=== PATIENT | female | born 1970 | race Caucasian/White ===

== ENCOUNTER 2016-12-18 12:00 | Inpatient (IN) | payer OTHER ==
--- NOTE | 2016-12-14 08:30 | PREOPHP ---
DATE OF ADMISSION: 12/18/2016 Patient to have surgery with Dr. Kd Webb on 12/18/2016. REASON FOR CONSULTATION: Consultation requested by Dr. Kd Webb for medical evaluation and c learance of a 46-year-old woman about to undergo surgery on her lumbar spine. Thank you, Dr. Webb, for allowing us to participate in the care of this patient. HISTORY OF PRESENT ILLNESS: Fay Espinoza, a 46-year-old woman, had prior surgery on her lumbar sp ine approximately a year and 3 months ago, doing relatively well until recently and currently needs to have another procedure at a different level. PAST SURGICAL HISTORY: Positive for the followin. She has had a . 2. Laparoscopic hysterectomy. 3. Lumbar spine surgery, as mentioned above, as well as: 4. Arthroscopic surgery on her right knee. 5. Currently will be undergoing L3-L4 and L4 through S1 fusion. She has had no medical hospitalizations, has not broken any big bones. MEDICATION: Currently taking the following medications: 1. Prozac 60 mg a day. 2. Wellbutrin-XL 300 mg a day. ALLERGIES: 1. SHE IS SENSITIVE TO CODEINE AND REGLAN. 2. ALLERGIC TO KEFLEX. SOCIAL HISTORY: The patient is , has 1 son who survived AML. She does not smoke or drink al coholic beverages; does drink coffee, is employed, and usually has no difficulty sleeping at night. FAMILY HISTORY: Father at age 69 of esophageal cancer. Mother is 75 and has thyroid issues, o therwise healthy. One brother in good health. There is a family history of diabetes, as well as he art and cancer issues. No hypertension, no stroke. REVIEW OF SYSTEMS HEENT: Periodic headaches, usually tension headaches. CARDIORESPIRATORY: Denies any chest pain or shortness of breath. GASTROINTESTINAL: No melena or hematemesis. GENITOURINARY: No urgency or frequency. GYNECOLOGIC: Post hysterectomy. MUSCULOSKELETAL: Positive for back pain. NEUROPSYCHIATRIC: Positive for anxiety/depression. General health has been good. PHYSICAL EXAMINATION: VITAL SIGNS: The patient's blood pressure was 112/70, pulse was 88 and regular, respirations were 1 8, temperature 98.6. Height 5 feet 4-1/4 inches, weight 126 pounds. GENERAL: The patient was noted to be a well-developed, well-nourished female, alert and cooperative , in no apparent acute distress, oriented to time, place, and person. HEAD, EARS, EYES, NOSE AND THROAT: Head was atraumatic. Eyes: Pupils were equal, reactive to ligh t and accommodation. Fundi were benign. Tympanic membranes were unremarkable. Nose was negative. Mouth was unremarkable. Fair oral hygiene was present. NECK: Supple, without any rigidity. Trachea was midline. Thyroid was unremarkable. Neck veins we re flat. Carotid pulses were equal. No bruits were heard. BACK: Exam revealed scars from prior surgery, otherwise unremarkable. CHEST: Symmetrical. BREASTS AND AXILLARY: Did not reveal any masses. LUNGS: Clear to percussion and auscultation. HEART: PMI is fifth intercostal space at the midclavicular line. Regular sinus rhythm was noted. No significant murmurs, rubs, or gallops being elicited. ABDOMEN: Soft. Good bowel sounds were noted. No significant organomegaly, masses, or tenderness. GENITALIA: Normal female external genitalia. PELVIC/RECTAL EXAM: Per head of measurement & insights, up to date. EXTREMITIES: Did not reveal any clubbing, edema or cyanosis. Peripheral pulses were physiologic. SKIN: Moist and warm, without any eruptions. No gross lymphadenopathy was noted. NEUROLOGIC EXAM: Grossly intact. IMPRESSION: 1. Lumbar spine and disk disease. 2. Menopausal syndrome. 3. Chronic lung nodule, unchanged. 4. Stable health. DISCUSSION: Review of laboratory and other data revealed the following: The patient's chemistry pa latia revealed normal electrolytes, glucose, BUN, creatinine, liver function tests. TSH, CBC, UA, PT and PTT were normal as well. The patient's chest x-ray was normal other than a nodular density whic h had not changed over the last year and a half, in which she had a negative CAT scan in that partic ular evaluation a year and a half ago. Her EKG was normal as well. DISCUSSION: Dr. Webb, I see no contraindication in this patient undergoing the current propose d surgery under the desired form of anesthesia and feel she is a suitable candidate at this particul ar point in time and I will follow her along with you during her stay at [facility]. Thank you again, Dr. Webb, for allowing us to participate in the care of this patient. Dictated By: JULIO CESAR ROBLEDO MD SS/NTS Conf#: [id number] DID#: [id number]
[~2016-12-18] VITALS: Ht 162.6 cm; Wt 56.0 kg
[~2016-12-18 12:00] MED LIST: BUPR300T48 PO; CYCL-319 PO; FLUO40CA10 PO; LACTATED RINGER'S 1,000 ML IV* SCH; OXYC-281 PO
--- NOTE | 2017-04-19 10:49 | PREOPHP ---
DATE OF ADMISSION: 01/29/2017 REASON FOR CONSULTATION: Medical evaluation and clearance for this 46-year-old woman about to undergo surgery on her lumbar spine Thank you Dr Webb for allowing us to participate in the care of this patient. HISTORY OF PRESENT ILLNESS: Fay Couch is a 46-year-old woman who has had prior surgeries on her lumbar spine and so far has been doing relatively well until she started experiencing pain again and currently will be necessitating another surgery, which is going to include fusions at L3-L4, L4-L5, and L5-S1, as well as removal of hardware from L4-L5. Patient has had the following surgical procedures. PAST SURGICAL HISTORY: 1. . 2. Laparoscopic hysterectomy. 3. Lumbar spine surgery as above. 4. Arthroscopic surgery on her right knee. 5. As mentioned above, will be undergoing further lumbar spine surgery. PAST MEDICAL HISTORY: She has had no medical hospitalizations to date. Has had no major fractures as well. General health has been good. CURRENT MEDICATIONS: Include the followin. Wellbutrin SL 300 mg a day. 2. Prozac 16 mg a day. 3. Flexeril 10 mg t.i.d. as needed. ALLERGIES: KEFLEX. REGLAN. CODEINE. CODEINE MAY BE A SENSITIVITY WELL. VICODIN. SOCIAL HISTORY: The patient is , has 1 son who had AML and survived it. She does not smoke or drink alcoholic beverages. Does drink coffee. Works and usually has no difficulty sleeping at night. FAMILY HISTORY: Father at age 69, had esophageal cancer. Mother is 75 and well, does have some thyroid issues, and 1 brother is in good health. Family history of heart, cancer, diabetes, and thyroid. No hypertension or strokes. REVIEW OF SYSTEMS: HEENT: Periodic headaches. RESPIRATORY: Denies any chest pain or shortness of breath. GASTROINTESTINAL: No melena or hematemesis. GENITOURINARY: No urgency or frequency. GYNECOLOGIC: Post hysterectomy. MUSCULOSKELETAL: Positive for back problems. NEUROPSYCHIATRIC: Mild anxiety/depression. GENERAL HEALTH: As above. PHYSICAL EXAM: VITAL SIGNS: Patient's blood pressure was 122/64. Pulse was 72 and regular. Respirations were 18. Temperature 98. Height 5 feet 4 inches, weight 126 pounds. GENERAL: Patient was noted to be a well-developed, well- nourished female, alert and cooperative, in no obvious distress. Oriented to time, place, and person. HEAD, EAR, EYES, NOSE, AND THROAT: Head was atraumatic. The eyes, pupils were equal and reactive to light and accommodation. Fundi were benign. Tympanic membranes were unremarkable. Nose was negative. Mouth was unremarkable. Fair oral hygiene was present. NECK: Neck was supple without any rigidity. Trachea was midline. Thyroid was unremarkable. Neck veins were flat. Carotids pulses were equal. No bruits were heard. BACK: Unremarkable. Scar from prior surgery was noted. CHEST: Symmetrical. BREASTS: Axillary exam did not reveal any masses. LUNGS: Clear to percussion and auscultation. HEART: PMI in the 5th intercostal space, midclavicular line. Regular rhythm was noted. No significant murmurs, rubs, or gallops being elicited. ABDOMEN: Soft. Good bowel sounds were noted. No organomegaly, masses, or tenderness being noted. GENITALIA: Normal female external genitalia. PELVORECTAL: Up to date, per sand drier. EXTREMITIES: Did not reveal any clubbing, edema, or cyanosis. Peripheral pulses were physiologic. Skin was moist and warm without any eruptions. No gross lymphadenopathy was noted. NEUROLOGIC: Grossly intact. IMPRESSION: 1. Lumbar spine and disc disease. 2. Menopausal syndrome. 3. Chronic lung nodule, stable and unchanged. 4. Stable health discussion. LABORATORY: Review of laboratory and other data revealed the following: The patient's chemistry panel, including electrolytes, glucose, BUN, creatinine, liver function tests, basically normal. Minimal elevation of ALT was noted at 48. Patient's serum iron, magnesium, and thyroid function tests, CBC, sedimentation rate, UA, PT, and APTT were normal as well. Patient's EKG was normal as was her chest x-ray, other than that nodular density which has been present for a long time and of no clinical significance and has been thoroughly evaluated. Dr Webb, I see no contraindications for the patient undergoing current proposed surgery under desired form of anesthia and will follow her along with her during her stay at [facility]. Thank you again, Dr Webb, for letting us participate in the care of this patient. Dictated By: Jordan Horta MD /ira/karlo /Document#: [id number] MTDD
[2017-04-23] VITALS (26 sets, daily range): BP systolic 104–132; BP diastolic 56–76; PULSE 69–80; RESP 16–37; Ht 162.6 cm; Wt 56.0 kg
[2017-04-23] MEDS ORDERED: LACTATED RINGER'S 1,000 ML IV* SCH (06:00)
[2017-04-23] MEDS ORDERED: [UNRECOGNIZED DRUG - REMARK] XX SCH (08:00)
--- NOTE | 2017-04-23 11:50 | HPN ---
Date/Time of Note Date/Time of Note DATE: 04/23/17 TIME: 11:50 Interval H&P Admission Note Pt. seen H&P reviewed: No system changes TERRIE MANZO PA-C Apr 23, 2017 11:50
[2017-04-23] MEDS ORDERED: SUCCINYLCHOLINE CHLORIDE 100 MG/5 ML SYG IV ONE (12:03)
[2017-04-23] MEDS ORDERED: PROPOFOL 20 ML ONE (12:03)
[2017-04-23] MEDS ORDERED: FENTAnyl 50 MCG/ML VIAL ONE (12:03)
[2017-04-23] MEDS ORDERED: ROCURONIUM 50 MG INJ ONE (12:03)
[2017-04-23] MEDS ORDERED: LIDOCAINE 2% (SDV) 5 ML INJ ONE (12:03)
[2017-04-23] MEDS ORDERED: SURGIFOAM POWDER 1 GM KIT ONE (12:09)
[2017-04-23] MEDS ORDERED: BUPIVACAINE 0.25%/EPI (SDV) 30 ML INJ ONE (12:09)
[2017-04-23] MEDS ORDERED: POLYMYXIN/BACITRACIN 1L IRRIG ONE (12:10)
[2017-04-23] MEDS ORDERED: THROMBIN 5000 UNIT VIAL ONE (12:10)
[2017-04-23] MEDS ORDERED: VANCOMYCIN 1 GM (PMX) 250 ML ONE (12:46)
[2017-04-23] MEDS ORDERED: ONDANSETRON 4 MG INJ ONE (13:21)
[2017-04-23] MEDS ORDERED: DEXAMETHASONE 4 MG/ML 1 ML INJ ONE (13:21)
[2017-04-23] MEDS ORDERED: SUGAMMADEX SODIUM 200 MG/2 ML VIAL IV ONE (15:48)
--- NOTE | 2017-04-23 16:17 | OPPN ---
Date/Time of Note Date/Time of Note DATE: 04/23/17 TIME: 16:15 Operative Report Preoperative Diagnosis L3-4 DDD Postoperative Diagnosis L3-4 DDD Operation/Procedure Performed ALIF L3-4 Provider: NICOLA LOYD MD admissions assistant: TERRIE MANZO PA-C Anesthesia: general Estimated blood loss: 50 - 100 ml's Specimens L3-4 disc Grafts/Implants L3-4 interbody device L3-4 interspinous device Complications: None TERRIE MANZO PA-C Apr 23, 2017 16:16
[2017-04-23] MEDS ORDERED: HYDROmorphONE 0.2 MG/ML PCA IV SCH (16:30)
[2017-04-23] MEDS ORDERED: ZOLPIDEM 5 MG TAB PO PRN (16:30)
[2017-04-23] MEDS ORDERED: MEPERIDINE 25 MG INJ IV PRN (16:30)
[2017-04-23] MEDS ORDERED: AL HYDROX/MG HYDROX/SIMETH 30 ML CUP PO PRN (16:30)
[2017-04-23] MEDS ORDERED: ONDANSETRON 4 MG INJ IV PRN ×2 (16:30)
[2017-04-23] MEDS ORDERED: FENTAnyl 50 MCG/ML VIAL IV PRN ×2 (16:30)
[2017-04-23] MEDS ORDERED: ACETAMINOPHEN 325 MG TAB PO PRN (16:30)
[2017-04-23] MEDS ORDERED: BISACODYL 10 MG SUPP PR PRN (16:30)
[2017-04-23] MEDS ORDERED: NALOXONE (0.4 MG/ML) INJ IV PRN (16:30)
[2017-04-23] MEDS ORDERED: DIPHENHYDRAMINE 50 MG INJ IV PRN (16:30)
[2017-04-23] MEDS ORDERED: CEPASTAT LOZENGE MT PRN (16:30)
--- NOTE | 2017-04-23 18:06 | RADRPT ---
PROCEDURE: Intraoperative imaging of the lumbar spine with fluoroscopy. CLINICAL INDICATION: Back pain. Intraoperative. TECHNIQUE: 9 images of the lumbar spine were obtained in the operating room with an image intensif ier. No radiologist was in attendance. Fluoroscopy time is 108 seconds. COMPARISON: No prior study is available for comparison. FINDINGS: Images demonstrate multiple surgical instruments, screws, and connecting rods in the lower lumbar sp ine. IMPRESSION: 1. Intraoperative imaging of the lumbar spine. RPTAT: QQ .Steven Martinez MD, Date Time Electronically viewed and signed by .Steven Martinez MD, on 04/23/2017 18:06 .R/
[2017-04-23] MEDS ORDERED: CYCLOBENZAPRINE 10 MG TAB PO PRN (18:30)
--- NOTE | 2017-04-23 18:31 | CONS ---
Date/Time of Note Date/Time of Note DATE: 04/23/17 TIME: 18:25 Consult Date/Type/Reason Admit Date/Time Apr 23, 2017 at 08:36 Initial Consult Date 04/16/2017 Type of Consultation: internal medicine Reason for Consultation pre=op evaluation and clearance Ordering Provider: NICOLA LOYD MD Subjective alert in recovery room comp-laining of back pain otherwise stable Objective Vital Signs Date Time Temp Pulse Resp B/P Pulse Ox O2 Delivery O2 Flow Rate FiO2 04/23/17 18:00 75 18 123/68 98 Room Air 04/23/17 16:27 97.0 Exam heent-neg chestsymetrical lungs -clear heart regular rhyth abdonen -soft Results/Medications Medications Current Medications Lactated Ringer's 1,000 ml @ 0 mls/hr Q0M IV* ; Start 04/23/17 at 06:00; Stop 04/23/17 at 19:00 Potassium Chloride/Dextrose/ Sod Cl (D5-1/2ns + KCl 20 Meq) 1,000 ml @ 100 mls/ hr Q10H IV ; Start 04/23/17 at 16:12 Oxycodone/ Acetaminophen (Endocet (10/ 325)) 1 tab Q4H PRN PO PAIN LEVEL 1-5; Start 04/23/17 at 16:30 Oxycodone/ Acetaminophen (Endocet (10/ 325)) 2 tab Q4H PRN PO PAIN LEVEL 6-10; Start 04/23/17 at 16:30 Hydromorphone HCl 0.2 mg 0.2 mg Q1H PRN IV BREAKTHROUGH PAIN; Start 04/23/17 at 16:30 Vancomycin HCl (Vancocin) 250 ml @ 125 mls/hr Q12H IVPB ; Start 04/24/17 at 01: 00; Stop 04/24/17 at 14:59 Ondansetron HCl (Zofran Inj) 4 mg Q6H PRN IV NAUSEA AND/OR VOMITING; Start at 16:30 Bisacodyl (Dulcolax Supp) 10 mg DAILY PRN [place] CONSTIPATION; Start 04/23/17 at 16 :30 Docusate Sodium (Colace) 100 mg BID PO ; Start 04/23/17 at 21:00 Al Hydrox/Mg Hydrox/Simethicone (Mag-Al Plus) 15 ml Q6H PRN PO CONSTIPATION/ DYSPEPSIA; Start 04/23/17 at 16:30 Acetaminophen (Tylenol Tab) 650 mg Q4H PRN PO WESTON OR TEMP GREATER THAN 101.3F; Start 04/23/17 at 16:30 Cyclobenzaprine HCl (Flexeril) 10 mg TID PRN PO MUSCLE SPASMS; Start 04/23/17 at 16:30 Phenol (Cepastat Lozenge) 1 lozenge PRN PRN MT SORE THROAT; Start 04/23/17 at 16:30 Diphenhydramine HCl (Benadryl) 25 mg Q6H PRN IV ITCHING; Start 04/23/17 at 16: 30 Naloxone HCl (Narcan) 0.2 mg Q2M PRN IV RR 8 BREATHS/MIN OR LESS; Start at 16:30 Hydromorphone HCl (Dilaudid MATERIALS HANDLING COORDINATOR) MATERIALS HANDLING COORDINATOR to be started in PACU Q4PCA IV Last administered on 04/23/17t 16:43; Admin Dose 6 MG; Start 04/23/17 at 16:30 Miscellaneous Information 1. Hold MATERIALS HANDLING COORDINATOR at 1,000... MATERIALS HANDLING COORDINATOR IV ; Start 04/23/17 at 16: 30 Assessment/Plan Chief Complaint/Hosp Course back pain post lumbar spine surgery Problems: Additional Assessment/Plan plan will follow medically pre-op medicines reorderd will follow --thank you JULIO CESAR Tapia MD Apr 23, 2017 18:31
[2017-04-23] MEDS: CYCLOBENZAPRINE 10 MG TAB PO PRN (18:39)
[2017-04-23] MEDS: DOCUSATE SODIUM 100 MG CAP PO SCH (21:00)
[2017-04-24] VITALS: BP 103/55; RESP 20
[2017-04-24] MEDS: VANCOMYCIN 1 GM (PMX) 250 ML IVPB SCH ×2 (01:00→04:11)
[2017-04-24] MEDS: D5W-0.45 NACL + KCL 20 MEQ 1,000 ML IV SCH ×4 (01:42→22:12)
[2017-04-24] MEDS: OXYCODONE/ACETAMINOPHEN (10/325) TAB PO PRN ×5 (04:10→20:06)
[2017-04-24] MEDS: DIPHENHYDRAMINE 50 MG INJ IV PRN ×2 (04:20→09:12)
[2017-04-24] MEDS ORDERED: ONDANSETRON 4 MG INJ IV PRN (04:30)
[2017-04-24 07:00] VITALS: BP 110/56; PULSE 71; RESP 20
--- NOTE | 2017-04-24 07:14 | PN ---
Date/Time of Note Date/Time of Note DATE: 04/24/17 TIME: 07:12 Assessment/Plan Lines/Catheters IV Catheter Type (from Nrsg): Peripheral IV [place] in Place (from Nrsg): Yes Assessment/Plan Assessment/Plan post op #1 d/c front man and start orals control nausea and pain hct 24 - historically she is anemic. HCT 2016 range 23-25; will obtain stat CT to rule out intraabdominal bleeding - low suspicion; vitals have been stable and WNL. Subjective 24 Hr Interval Summary c/o back pain and nausea Exam/Review of Systems Vital Signs Vitals Vital Signs Date Time Temp Pulse Resp B/P Pulse Ox O2 Delivery O2 Flow Rate FiO2 04/23/17 19:20 97.7 80 18 104/57 98 04/23/17 18:45 Room Air Intake and Output 04/23/17 04/23/17 04/24/17 15:00 23:00 07:00 Intake Total 1800 ml 440 ml Output Total 510 ml 800 ml Balance 1290 ml -360 ml Exam Free Text/Dictation abdomen soft and non tender alert and oriented NVI incisions dry NICOLA LOYD MD Apr 24, 2017 07:14
--- NOTE | 2017-04-24 07:14 | CONS ---
Date/Time of Note Date/Time of Note DATE: 04/24/17 TIME: 07:11 Consultation Date/Type/Reason Admit Date/Time Apr 23, 2017 at 08:36 Initial Consult Date 04/24/17 Type of Consultation: Anesthesiology Reason for Consultation Follow up Referring Provider: NICOLA LOYD MD 24 HR Interval Summary Free Text/Dictation Pt seen and examined at bedside is POD#1 s/p L3-4 XLIF. Pt states she id doing well but still has pain for which she is receiving PRN percocet and CELLOPHANE PRESS OPERATOR. She states the pain she has during this recovery is much less than her prior back surgery and is in good spirits. She has an episode of vomiting yesterday and states she usually has much more N/V. Moving all extremities. Will continue to follow. Constitutional: improved, no complaints Exam/Review of Systems Vital Signs Vitals Vital Signs Date Time Temp Pulse Resp B/P Pulse Ox O2 Delivery O2 Flow Rate FiO2 04/23/17 19:20 97.7 80 18 104/57 98 04/23/17 18:45 Room Air Intake and Output 04/23/17 04/23/17 04/24/17 15:00 23:00 07:00 Intake Total 1800 ml 440 ml Output Total 510 ml 800 ml Balance 1290 ml -360 ml Medications Medications Current Medications Potassium Chloride/Dextrose/ Sod Cl (D5-1/2ns + KCl 20 Meq) 1,000 ml @ 100 mls/ hr Q10H IV Last administered on 04/24/17 02:12; Admin Dose 100 MLS/HR; Start 04/23/17 at 16:12 Oxycodone/ Acetaminophen (Endocet (10/ 325)) 1 tab Q4H PRN PO PAIN LEVEL 1-5 Last administered on 04/24/17 07:09; Admin Dose 1 TAB; Start 04/23/17 at 16:30 Oxycodone/ Acetaminophen (Endocet (10/ 325)) 2 tab Q4H PRN PO PAIN LEVEL 6-10; Start 04/23/17 at 16:30 Hydromorphone HCl 0.2 mg 0.2 mg Q1H PRN IV BREAKTHROUGH PAIN; Start 04/23/17 at 16:30 Vancomycin HCl (Vancocin) 250 ml @ 125 mls/hr Q12H IVPB Last administered on 04:11; Admin Dose 125 MLS/HR; Start 04/24/17 at 01:00; Stop 04/24/17 at 14:59 Bisacodyl (Dulcolax Supp) 10 mg DAILY PRN [place] CONSTIPATION; Start 04/23/17 at 16 :30 Docusate Sodium (Colace) 100 mg BID PO Last administered on 04/23/17 21:00; Admin Dose 100 MG; Start 04/23/17 at 21:00 Al Hydrox/Mg Hydrox/Simethicone (Mag-Al Plus) 15 ml Q6H PRN PO CONSTIPATION/ DYSPEPSIA; Start 04/23/17 at 16:30 Acetaminophen (Tylenol Tab) 650 mg Q4H PRN PO [place]ST[place] OR TEMP GREATER THAN 101.3F; Start 04/23/17 at 16:30 Cyclobenzaprine HCl (Flexeril) 10 mg TID PRN PO MUSCLE SPASMS Last administered on 04/23/17 18:39; Admin Dose 10 MG; Start 04/23/17 at 16:30 Phenol (Cepastat Lozenge) 1 lozenge PRN PRN MT SORE THROAT; Start 04/23/17 at 16:30 Diphenhydramine HCl (Benadryl) 25 mg Q6H PRN IV ITCHING Last administered on 04:20; Admin Dose 25 MG; Start 04/23/17 at 16:30 Naloxone HCl (Narcan) 0.2 mg Q2M PRN IV RR 8 BREATHS/MIN OR LESS; Start at 16:30 Hydromorphone HCl (Dilaudid CELLOPHANE PRESS OPERATOR) CELLOPHANE PRESS OPERATOR to be started in PACU Q4PCA IV Last administered on 04/23/17 16:43; Admin Dose 6 MG; Start 04/23/17 at 16:30 Miscellaneous Information 1. Hold CELLOPHANE PRESS OPERATOR at 1,000... CELLOPHANE PRESS OPERATOR IV ; Start 04/23/17 at 16: 30 Bupropion HCl (Wellbutrin Xl) 300 mg DAILY PO ; Start 04/24/17 at 09:00 Fluoxetine HCl (Prozac) 60 mg DAILY PO ; Start 04/24/17 at 09:00 Ondansetron HCl (Zofran Inj) 4 mg Q4H PRN IV NAUSEA AND/OR VOMITING; Start at 04:30 DILSHAD GARCIA Apr 24, 2017 07:14
[2017-04-24 08:00] VITALS: BP 118/69; RESP 18
[2017-04-24] MEDS: CYCLOBENZAPRINE 10 MG TAB PO PRN ×3 (08:06→21:22)
--- NOTE | 2017-04-24 08:12 | CONS ---
Date/Time of Note Date/Time of Note DATE: 04/24/17 TIME: 08:05 Consult Date/Type/Reason Admit Date/Time Apr 23, 2017 at 08:36 Initial Consult Date 04/16/2017 Type of Consultation: internal medicine Reason for Consultation medical f/u post op Ordering Provider: NICOLA LOYD MD Subjective patient alert one episode of emesis and nausea last night possibly 2nd to narcotis.otherwise complaining of back pain at surgical site Objective Vital Signs Date Time Temp Pulse Resp B/P Pulse Ox O2 Delivery O2 Flow Rate FiO2 04/24/17 07:00 97.1 71 20 110/56 98 Room Air Intake and Output 04/23/17 04/23/17 04/24/17 15:00 23:00 07:00 Intake Total 1800 ml 690 ml Output Total 510 ml 800 ml Balance 1290 ml -110 ml Exam heent negative lungs clear hear regular rhythms present abdomen slightly distende b Results/Medications Results 24 hrs lab pending Medications Current Medications Potassium Chloride/Dextrose/ Sod Cl (D5-1/2ns + KCl 20 Meq) 1,000 ml @ 100 mls/ hr Q10H IV Last administered on 04/24/17 02:12; Admin Dose 100 MLS/HR; Start 04/23/17 at 16:12 Oxycodone/ Acetaminophen (Endocet (10/ 325)) 1 tab Q4H PRN PO PAIN LEVEL 1-5 Last administered on 04/24/17 07:09; Admin Dose 1 TAB; Start 04/23/17 at 16:30 Oxycodone/ Acetaminophen (Endocet (10/ 325)) 2 tab Q4H PRN PO PAIN LEVEL 6-10; Start 04/23/17 at 16:30 Hydromorphone HCl 0.2 mg 0.2 mg Q1H PRN IV BREAKTHROUGH PAIN; Start 04/23/17 at 16:30 Vancomycin HCl (Vancocin) 250 ml @ 125 mls/hr Q12H IVPB Last administered on 04:11; Admin Dose 125 MLS/HR; Start 04/24/17 at 01:00; Stop 04/24/17 at 14:59 Bisacodyl (Dulcolax Supp) 10 mg DAILY PRN [place] CONSTIPATION; Start 04/23/17 at 16 :30 Docusate Sodium (Colace) 100 mg BID PO Last administered on 04/23/17 21:00; Admin Dose 100 MG; Start 04/23/17 at 21:00 Al Hydrox/Mg Hydrox/Simethicone (Mag-Al Plus) 15 ml Q6H PRN PO CONSTIPATION/ DYSPEPSIA; Start 04/23/17 at 16:30 Acetaminophen (Tylenol Tab) 650 mg Q4H PRN PO [place] OR TEMP GREATER THAN 101.3F; Start 04/23/17 at 16:30 Cyclobenzaprine HCl (Flexeril) 10 mg TID PRN PO MUSCLE SPASMS Last administered on 04/23/17 18:39; Admin Dose 10 MG; Start 04/23/17 at 16:30 Phenol (Cepastat Lozenge) 1 lozenge PRN PRN MT SORE THROAT; Start 04/23/17 at 16:30 Diphenhydramine HCl (Benadryl) 25 mg Q6H PRN IV ITCHING Last administered on 04:20; Admin Dose 25 MG; Start 04/23/17 at 16:30 Naloxone HCl (Narcan) 0.2 mg Q2M PRN IV RR 8 BREATHS/MIN OR LESS; Start at 16:30 Hydromorphone HCl (Dilaudid BUILDING INSPECTOR) BUILDING INSPECTOR to be started in PACU Q4PCA IV Last administered on 04/23/17 16:43; Admin Dose 6 MG; Start 04/23/17 at 16:30 Miscellaneous Information 1. Hold BUILDING INSPECTOR at 1,000... BUILDING INSPECTOR IV ; Start 04/23/17 at 16: 30 Bupropion HCl (Wellbutrin Xl) 300 mg DAILY PO ; Start 04/24/17 at 09:00 Fluoxetine HCl (Prozac) 60 mg DAILY PO ; Start 04/24/17 at 09:00 Ondansetron HCl (Zofran Inj) 4 mg Q4H PRN IV NAUSEA AND/OR VOMITING; Start at 04:30 Assessment/Plan Chief Complaint/Hosp Course back pain post lumbar spine surgery Problems: Additional Assessment/Plan plan await todays lab plan per JULIO CESAR Gerardo MD Apr 24, 2017 08:12
[2017-04-24 08:42] LABS: BASOPHILS % 0.2 % (0.0-2.0); EOSINOPHILS % 0.1 % (0.0-7.0); HEMATOCRIT 32.8 % (37.0-47.0); HEMOGLOBIN 10.5 g/dl (12.0-16.0); LYMPHOCYTES % 9.9 % (15.0-51.0); MEAN CORPUSCULAR HEMOGLOBIN 26.9 pg (29.0-33.0); MEAN CORPUSCULAR VOLUME 84.1 fl (82.0-101.0); MEAN PLATELET VOLUME 10.1 fl (7.4-10.4); MONOCYTE # 0.7 10^3/ul (0.3-0.9); MONOCYTES % 6.7 % (0.0-11.0); NEUTROPHIL # 8.1 10^3/ul (1.6-7.5); NEUTROPHILS % 82.8 % (39.0-77.0); PLATELET COUNT 254 10^3/UL (140-415); RED CELL DISTRIBUTION WIDTH 12.9 % (11.5-14.5); WHITE BLOOD COUNT 9.7 10^3/ul (4.8-10.8)
[2017-04-24 08:57] LABS: CALCIUM 8.2 mg/dl (8.4-10.2); CREATININE 0.72 mg/dl (0.44-1.00); POTASSIUM 4.6 mmol/L (3.5-5.1)
[2017-04-24] MEDS: DOCUSATE SODIUM 100 MG CAP PO SCH ×2 (09:15→20:06)
[2017-04-24] MEDS: BUPROPION (XL) 150 MG TAB PO SCH (09:15)
[2017-04-24] MEDS: FLUOXETINE 20 MG CAP PO SCH (09:15)
[2017-04-24] MEDS ORDERED: DIPHENHYDRAMINE 50 MG INJ IV PRN ×2 (10:13→10:30)
[2017-04-24 14:00] VITALS: BP 116/61; RESP 18
[2017-04-24] MEDS: HYDROmorphONE 1 MG/ML SYG IV PRN (16:26)
[2017-04-24 19:20] VITALS: BP 127/67; RESP 18
[2017-04-25] MEDS: OXYCODONE/ACETAMINOPHEN (10/325) TAB PO PRN ×6 (00:10→22:38)
[2017-04-25 04:05] VITALS: BP 111/58; PULSE 70; RESP 19
[2017-04-25 05:44] LABS: BASOPHILS % 0.3 % (0.0-2.0); EOSINOPHILS # 0.1 10^3/ul (0.0-0.5); EOSINOPHILS % 1.1 % (0.0-7.0); HEMATOCRIT 29.9 % (37.0-47.0); HEMOGLOBIN 9.9 g/dl (12.0-16.0); LYMPHOCYTES # 1.4 10^3/ul (0.8-2.9); LYMPHOCYTES % 22.8 % (15.0-51.0); MEAN CORPUSCULAR HEMOGLOBIN 27.7 pg (29.0-33.0); MEAN CORPUSCULAR HGB CONC 33.1 g/dl (32.0-37.0); MEAN CORPUSCULAR VOLUME 83.8 fl (82.0-101.0); MEAN PLATELET VOLUME 10.1 fl (7.4-10.4); MONOCYTE # 0.5 10^3/ul (0.3-0.9); MONOCYTES % 7.7 % (0.0-11.0); NEUTROPHIL # 4.3 10^3/ul (1.6-7.5); NEUTROPHILS % 67.9 % (39.0-77.0); PLATELET COUNT 220 10^3/UL (140-415); RED BLOOD COUNT 3.57 10^6/ul (4.20-5.40); RED CELL DISTRIBUTION WIDTH 12.8 % (11.5-14.5); WHITE BLOOD COUNT 6.3 10^3/ul (4.8-10.8)
[2017-04-25] MEDS: CYCLOBENZAPRINE 10 MG TAB PO PRN ×3 (05:45→22:08)
[2017-04-25 06:15] LABS: ALBUMIN 3.1 g/dl (3.3-4.9); ALBUMIN/GLOBULIN RATIO 1.24; CALCIUM 8.5 mg/dl (8.4-10.2); CREATININE 0.74 mg/dl (0.44-1.00); POTASSIUM 3.7 mmol/L (3.5-5.1); TOTAL PROTEIN 5.6 g/dl (6.1-8.1)
[2017-04-25 07:58] VITALS: BP 110/52; RESP 18
[2017-04-25] MEDS: D5W-0.45 NACL + KCL 20 MEQ 1,000 ML IV SCH ×2 (08:12→18:12)
[2017-04-25] MEDS: DOCUSATE SODIUM 100 MG CAP PO SCH ×2 (08:20→22:08)
[2017-04-25] MEDS: BUPROPION (XL) 150 MG TAB PO SCH (08:20)
[2017-04-25] MEDS: FLUOXETINE 20 MG CAP PO SCH (08:21)
--- NOTE | 2017-04-25 09:41 | CONS ---
Date/Time of Note Date/Time of Note DATE: 04/25/17 TIME: 09:35 Consult Date/Type/Reason Admit Date/Time Apr 23, 2017 at 08:36 Initial Consult Date 04/16/2017 Type of Consultation: internal medicine Reason for Consultation medical management and f/u Ordering Provider: NICOLA LOYD MD Subjective more comfortable today, still having back pain but is improving -gi symptoms improved Objective Vital Signs Date Time Temp Pulse Resp B/P Pulse Ox O2 Delivery O2 Flow Rate FiO2 04/25/17 07:58 98.0 74 18 110/52 98 04/25/17 04:05 Room Air Intake and Output 04/24/17 04/24/17 04/25/17 15:00 23:00 07:00 Intake Total 500 ml 1280 ml 640 ml Output Total 800 ml 900 ml Balance 500 ml 480 ml -260 ml Exam vss stable heent neg chest clear cor rsr Results/Medications Result Diagram: 04/25/17 0445 04/25/17 0445 Results 24 hrs Laboratory Tests Test 04/25/17 04:45 White Blood Count 6.3 # Red Blood Count 3.57 L Hemoglobin 9.9 L Hematocrit 29.9 L Mean Corpuscular Volume 83.8 Mean Corpuscular Hemoglobin 27.7 L Mean Corpuscular Hemoglobin Concent 33.1 Red Cell Distribution Width 12.8 Platelet Count 220 Mean Platelet Volume 10.1 Neutrophils % 67.9 Lymphocytes % 22.8 Monocytes % 7.7 Eosinophils % 1.1 Basophils % 0.3 Nucleated Red Blood Cells % 0.0 Neutrophils # 4.3 Lymphocytes # 1.4 Monocytes # 0.5 Eosinophils # 0.1 Basophils # 0.0 Nucleated Red Blood Cells # 0.0 Sodium Level 140 Potassium Level 3.7 Chloride Level 103 Carbon Dioxide Level 27 Anion Gap 14 Blood Urea Nitrogen 14 Creatinine 0.74 Glucose Level 95 Calcium Level 8.5 Total Bilirubin 0.0 L Direct Bilirubin 0.00 Indirect Bilirubin 0.0 Aspartate Amino Transf (AST/SGOT) 38 Alanine Aminotransferase (ALT/SGPT) 37 Alkaline Phosphatase 64 Total Protein 5.6 L Albumin 3.1 L Globulin 2.50 Albumin/Globulin Ratio 1.24 Medications Current Medications Potassium Chloride/Dextrose/ Sod Cl (D5-1/2ns + KCl 20 Meq) 1,000 ml @ 100 mls/ hr Q10H IV Last administered on 04/24/17 02:12; Admin Dose 100 MLS/HR; Start 04/23/17 at 16:12 Oxycodone/ Acetaminophen (Endocet (10/ 325)) 1 tab Q4H PRN PO PAIN LEVEL 1-5 Last administered on 04/24/17 12:09; Admin Dose 1 TAB; Start 04/23/17 at 16:30 Oxycodone/ Acetaminophen (Endocet (10/ 325)) 2 tab Q4H PRN PO PAIN LEVEL 6-10 Last administered on 04/25/17 08:21; Admin Dose 2 TAB; Start 04/23/17 at 16:30 Hydromorphone HCl (Dilaudid) 0.2 mg Q1H PRN IV BREAKTHROUGH PAIN Last administered on 04/24/17 16:26; Admin Dose 0.2 MG; Start 04/23/17 at 16:30 Bisacodyl (Dulcolax Supp) 10 mg DAILY PRN [place] CONSTIPATION; Start 04/23/17 at 16 :30 Docusate Sodium (Colace) 100 mg BID PO Last administered on 04/25/17 08:20; Admin Dose 100 MG; Start 04/23/17 at 21:00 Al Hydrox/Mg Hydrox/Simethicone (Mag-Al Plus) 15 ml Q6H PRN PO CONSTIPATION/ DYSPEPSIA; Start 04/23/17 at 16:30 Acetaminophen (Tylenol Tab) 650 mg Q4H PRN PO [place] OR TEMP GREATER THAN 101.3F; Start 04/23/17 at 16:30 Cyclobenzaprine HCl (Flexeril) 10 mg TID PRN PO MUSCLE SPASMS Last administered on 04/25/17 05:45; Admin Dose 10 MG; Start 04/23/17 at 16:30 Phenol (Cepastat Lozenge) 1 lozenge PRN PRN [place] SORE THROAT; Start 04/23/17 at 16:30 Naloxone HCl (Narcan) 0.2 mg Q2M PRN IV RR 8 BREATHS/MIN OR LESS; Start at 16:30 Bupropion HCl (Wellbutrin Xl) 300 mg DAILY PO Last administered on 04/25/17 08 :20; Admin Dose 300 MG; Start 04/24/17 at 09:00 Fluoxetine HCl (Prozac) 60 mg DAILY PO Last administered on 04/25/17 08:21; Admin Dose 60 MG; Start 04/24/17 at 09:00 Ondansetron HCl (Zofran Inj) 4 mg Q4H PRN IV NAUSEA AND/OR VOMITING; Start at 04:30 Diphenhydramine HCl (Benadryl) 25 mg Q4H PRN IV itching ; Start 04/24/17 at 10: 30 Assessment/Plan Chief Complaint/Hosp Course back pain post lumbar spine surgery Problems: Additional Assessment/Plan mild anemia persists otherwise improving management per medically stable [facility] MD Apr 25, 2017 09:41
--- NOTE | 2017-04-25 12:39 | PN ---
Date/Time of Note Date/Time of Note DATE: 04/25/17 TIME: 12:38 Assessment/Plan Lines/Catheters IV Catheter Type (from Nrsg): Saline Lock Stratton in Place (from Nrsg): No Assessment/Plan Assessment/Plan s/p ALIF L3-4 not yet cleared for D/C by PT - continue PT, ambulate continue pain control routine care anticipate D/C tomorrow AM Subjective 24 Hr Interval Summary pt c/o LBP, nausea improving Exam/Review of Systems Vital Signs Vitals Vital Signs Date Time Temp Pulse Resp B/P Pulse Ox O2 Delivery O2 Flow Rate FiO2 04/25/17 07:58 98.0 74 18 110/52 98 04/25/17 04:05 Room Air Intake and Output 04/24/17 04/24/17 04/25/17 15:00 23:00 07:00 Intake Total 500 ml 1280 ml 640 ml Output Total 800 ml 900 ml Balance 500 ml 480 ml -260 ml Exam Free Text/Dictation NVID abdomen soft, NT/ND Results Result Diagram: 04/25/17 0445 04/25/17 0445 TERRIE MANZO PA-C Apr 25, 2017 12:39
--- NOTE | 2017-04-25 12:50 | OPR ---
DATE OF OPERATION: PREOPERATIVE DIAGNOSES: 1. Previous L4-5 L5, S1 fusion. 2. 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 3. Lumbar radiculopathy. POSTOPERATIVE DIAGNOSES: 1. Previous L4-5 L5, S1 fusion. 2. 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 3. Lumbar radiculopathy. IMPLANTS: 1. Kingston 8 x 10 x 40 mm cage. 2. Fiber graft. 3. Globus spinous fixation, 41-mm device with 30-mm ame. PROCEDURES: 1. Anterior lumbar interbody fusion, L3-4. 2. Placement of intervertebral biomechanical device. 3. Posterior spinous fixation at L3-4. 4. Use of allograft. 5. Posterior lateral fusion at L3-4. 6. Use of C-arm, flush with interpretation without radiologist present. 7. Intraoperative neuro monitoring (2 hours). PRIMARY SURGEON: Kd Webb MD. CHIEF TECHNICIAN X RAY: Carisa Quiroz PA-C. NEED FOR COMBINER OPERATOR: respiratory assistant was required in order to retract neurovascular elements. This cannot be done with a auto body technician. FINDINGS: Neuromonitoring at the start of the case revealed bilateral L3 and L4 amplitude down 40 percent. At the end of the case, all nerve signals returned to normal. The patient had instability at L3-4 with stenosis. ESTIMATED BLOOD LOSS: Sixty mL. DRAINS: None. SPECIMENS: L3-4 disk. COMPLICATIONS: None. ANESTHESIOLOGIST: Larry Campos MD. ANESTHESIA: General. INDICATION FOR PROCEDURE: This is a 46-year-old female who had previously undergone fusion at L4-5 and L5-S1. She developed instability at L3 through 4. Therefore, I recommended proceeding with the above mentioned surgery. Preoperatively, I discussed risks, benefits, and alternatives. She understood and wished to proceed. DESCRIPTION OF PROCEDURE: The patient was identified in the preoperative holding area, given vancomycin antibiotics in the operating room, where she was successfully placed under general anesthesia. Neuromonitoring leads were placed. Sequential compressive devices were applied. Stratton catheter was introduced. Neuromonitoring was utilized during the procedure for 3 hours to include SSEP, MEP, and EMG. This was performed by [employer]. Start time was 1:15; closure time was 4:15 p.m. The patient was initially placed in a right lateral decubitus position. The patient was secured to the table, and the table was flexed to allow access of the spine. The patient was then prepped in the usual sterile fashion. I identified the incision site, which I anesthetized with Marcaine and epinephrine. An anterior approach was then made to the spine from a direct lateral approach. Skin was incised. I then finger dissected through the musculature and identified the retroperitoneal space. I then placed a dilator over the L3-4 level under C-arm guidance and stimulated the area to make sure that there were no nerve roots in the field. I then passed a guidewire followed by larger dilators stimulating each of these along the way. I then placed a retractor. I visualized the psoas muscle, which I dissected, and docked the dilator onto the L3-4 disk space. I then stimulated the area and made sure that there was no neural elements in the field. Once this was done, an annulotomy was made followed by radicle discectomy using curettes, Kerrison punches, and pituitary rongeurs. I then placed various trials and chose the appropriate graft height. I then took the cage, within which I placed allograft, and I impacted the intervertebral biomechanical device into the L3-4 level to complete the anterior lumbar antibody fusion at this level. Hemostasis was achieved with bipolar cautery and Surgiflo. The wound was then irrigated. Retractors were removed. I then closed this wound in layers with number 1 Vicryl, 2-0 Vicryl, and 4 Monocryl sutures. I then placed Dermabond. I then transferred the patient to prone position on Ramez frame. The patient was then prepped in the usual sterile fashion again. All bony prominences were well padded. The incision was identified with the C-arm fluoroscope, and I injected the skin, subcu tissue, paraspinal musculature with 0.25 percent Marcaine epinephrine. An incision was then made over the L3-4 level and taken down to the dorsal fascia. I then subperiosteally dissected the L3 and L4 lamina bilaterally. I confirmed the level with the C-arm fluoroscope. I then burred the L3 and L4 lamina bilaterally. I then placed trials for the implant. The patient previously had pedicle screws and rather than extending these, I elected to use an interspinous fixation device to add stabilization to minimize the muscular violation. I then took the final interspinous implant, which I placed, locked it down onto the spinous processes, then took final AP and lateral images. I was happy with placement of the hardware and alignment of the spine. I then placed the allograft for posterior lateral fusion at L3-4. I irrigated the wound prior to doing so. I then closed the deep fascia with a number 1 Vicryl stitch. I then closed subcu tissue with 2-0 Vicryl suture and 4-0 Monocryl closure was then performed. Dermabond was then applied. The patient was then awakened from anesthesia and taken to recovery in stable condition. Lap, sponge, instrument counts were correct x2. There were no apparent complications during the procedure. The patient will be admitted to [facility] for routine postoperative care to include pain control, antibiotics, and physical therapy. Dictated By: Kd Webb MD /ira/anamaria /Document#: [id number]
[2017-04-25 19:46] VITALS: BP 111/70; RESP 22
[2017-04-26] MEDS: HYDROmorphONE 1 MG/ML SYG IV PRN ×2 (01:56→05:16)
[2017-04-26] MEDS: OXYCODONE/ACETAMINOPHEN (10/325) TAB PO PRN ×2 (04:00→09:55)
[2017-04-26] MEDS: D5W-0.45 NACL + KCL 20 MEQ 1,000 ML IV SCH (04:00)
--- NOTE | 2017-04-26 08:19 | DS ---
Date/Time of Note Date/Time of Note DATE: 04/26/17 TIME: 08:18 Discharge Summary Admission/Discharge Info Admit Date/Time Apr 23, 2017 at 08:36 Discharge Date/Time 04/26/17 Discharge Diagnosis fusion Patient Condition: Good Procedures L3-4 fusion Hospital Course patient was admitted to ortho [facility] after undergoing lumbar fusion. hospital course uncomplicated. stable for d/c f/u arranged Home Meds Reported Medications Oxycodone Hcl-Acetaminophen* (Percocet*) 5-325 Mg Tablet, 1 TAB PO Q4H Y for PAIN LEVEL 6-10, TAB 09/30/15 Cyclobenzaprine Hcl* (Cyclobenzaprine Hcl*) 10 Mg Tablet, 10 MG PO Q8 Y for MUSCLE SPASMS, #60 TAB 09/30/15 Bupropion Hcl* (Wellbutrin XL*) 300 Mg Tab.sr.24h, 300 MG PO DAILY, TAB.SA 09/30/15 Fluoxetine Hcl* (Prozac*) 40 Mg Capsule, 60 MG PO DAILY, CAP 09/30/15 Primary Care Provider Not On Staff Doctor Pending Labs Laboratory Tests Test 04/26/17 05:26 Lab Scanned Report [id number] NICOLA LOYD MD Apr 26, 2017 08:19
[2017-04-26 08:46] VITALS: BP 114/64; RESP 22
--- NOTE | 2017-04-26 08:49 | CONS ---
Date/Time of Note Date/Time of Note DATE: 04/26/17 TIME: 08:44 Consult Date/Type/Reason Admit Date/Time Apr 23, 2017 at 08:36 Initial Consult Date 04/16/2017 Type of Consultation: internal medicine Reason for Consultation medical f/u Ordering Provider: NICOLA LOYD MD Subjective still having pain but much improved appears more alert and AWAKE THIS AM Objective Vital Signs Date Time Temp Pulse Resp B/P Pulse Ox O2 Delivery O2 Flow Rate FiO2 04/25/17 19:46 98.5 69 22 111/70 100 04/25/17 04:05 Room Air Intake and Output 04/25/17 04/25/17 04/26/17 15:00 23:00 07:00 Intake Total 700 ml 800 ml Balance 700 ml 800 ml Exam vss stable heent neg. lungs clear cor rsr abd. soft bs+ Results/Medications Result Diagram: 04/25/1744404/25/17 0445 Results 24 hrs Laboratory Tests Test 04/26/17 05:26 Lab Scanned Report LAB Medications Current Medications Potassium Chloride/Dextrose/ Sod Cl (D5-1/2ns + KCl 20 Meq) 1,000 ml @ 100 mls/ hr Q10H IV Last administered on 04/24/17 02:12; Admin Dose 100 MLS/HR; Start 04/23/17 at 16:12 Oxycodone/ Acetaminophen (Endocet (10/ 325)) 1 tab Q4H PRN PO PAIN LEVEL 1-5 Last administered on 04/24/17 12:09; Admin Dose 1 TAB; Start 04/23/17 at 16:30 Oxycodone/ Acetaminophen (Endocet (10/ 325)) 2 tab Q4H PRN PO PAIN LEVEL 6-10 Last administered on 04/26/17 04:00; Admin Dose 2 TAB; Start 04/23/17 at 16:30 Hydromorphone HCl (Dilaudid) 0.2 mg Q1H PRN IV BREAKTHROUGH PAIN Last administered on 04/26/17 05:16; Admin Dose 0.2 MG; Start 04/23/17 at 16:30 Bisacodyl (Dulcolax Supp) 10 mg DAILY PRN [place] CONSTIPATION; Start 04/23/17 at 16 :30 Docusate Sodium (Colace) 100 mg BID PO Last administered on 04/25/17 22:08; Admin Dose 100 MG; Start 04/23/17 at 21:00 Al Hydrox/Mg Hydrox/Simethicone (Mag-Al Plus) 15 ml Q6H PRN PO CONSTIPATION/ DYSPEPSIA; Start 04/23/17 at 16:30 Acetaminophen (Tylenol Tab) 650 mg Q4H PRN PO [place] OR TEMP GREATER THAN 101.3F; Start 04/23/17 at 16:30 Cyclobenzaprine HCl (Flexeril) 10 mg TID PRN PO MUSCLE SPASMS Last administered on 04/25/17 22:08; Admin Dose 10 MG; Start 04/23/17 at 16:30 Phenol (Cepastat Lozenge) 1 lozenge PRN PRN [place] SORE THROAT; Start 04/23/17 at 16:30 Naloxone HCl (Narcan) 0.2 mg Q2M PRN IV RR 8 BREATHS/MIN OR LESS; Start at 16:30 Bupropion HCl (Wellbutrin Xl) 300 mg DAILY PO Last administered on 04/25/17 08 :20; Admin Dose 300 MG; Start 04/24/17 at 09:00 Fluoxetine HCl (Prozac) 60 mg DAILY PO Last administered on 04/25/17 08:21; Admin Dose 60 MG; Start 04/24/17 at 09:00 Ondansetron HCl (Zofran Inj) 4 mg Q4H PRN IV NAUSEA AND/OR VOMITING; Start at 04:30 Diphenhydramine HCl (Benadryl) 25 mg Q4H PRN IV itching ; Start 04/24/17 at 10: 30 Assessment/Plan Chief Complaint/Hosp Course back pain post lumbar spine surgery Problems: Additional Assessment/Plan medically patient is stable advised re iron ,vits etc. management per ----thank you JULIO CESAR Tapia MD Apr 26, 2017 08:49
[2017-04-26] MEDS: FLUOXETINE 20 MG CAP PO SCH (09:54)
[2017-04-26] MEDS: DOCUSATE SODIUM 100 MG CAP PO SCH (09:54)
[2017-04-26] MEDS: BUPROPION (XL) 150 MG TAB PO SCH (09:54)
== END 2017-04-26 11:10 | disposition home or self-care (01) | DRG 455 ==
LOC: REC 04-23 08:36 → MS1 04-23 18:10
PROVIDERS: ADMIT Specialist; ATTEND Specialist
PROC: 0SG00A1 (ICD-10-PCS; 2017-04-23)
PROC: 0ST20ZZ Resection of Lumbar Vertebral Disc, Open Approach (ICD-10-PCS; 2017-04-23)
PROC: 0SG00A0 Fusion of Lumbar Vertebral Joint with Interbody Fusion Device, Anterior Approach, Anterior Column, Open Approach (ICD-10-PCS; principal; 2017-04-23 12:00)
DX: M53.2X6 Spinal instabilities, lumbar region (principal); D64.9 Anemia, unspecified; M51.16 Intervertebral disc disorders with radiculopathy, lumbar region; R91.1 Solitary pulmonary nodule; R11.2 Nausea with vomiting, unspecified
CPT/HCPCS: 72114; 80048; 80053; 85025; 86850; 86900; 86901; 86920; 86999; 87086; 97116; 97163; 97530; C1713; J1100; J1170; J1200; J2405; J3010; J3370; J3480; J7999